=== PATIENT | male | born 2000 | race Caucasian/White ===

== ENCOUNTER 2019-09-27 13:17 | Inpatient (IN) | payer BC, OTHER ==
[~2019-09-27] VITALS: Ht 177.8 cm; Wt 54.2 kg
[2019-09-27] MEDS ORDERED: LIORESAL 1010 MG/TAB PO (13:27)
[2019-09-27] MEDS ORDERED: PERIDEX (CHLOR480 ML TOP (13:30)
[2019-09-27] MEDS ORDERED: PERIDEX (CHLOR480 ML MM (13:32)
[2019-09-27] MEDS ORDERED: SENNA-S 50 MG-81 TAB PO (13:34)
[2019-09-27] MEDS ORDERED: ILOTYCIN5 MG/GM OU (13:35)
[2019-09-27] MEDS ORDERED: NEURONTIN300 MG/CAP PO (13:36)
[2019-09-27] MEDS ORDERED: ZOFRAN 4MG T4 MG/TAB PO (13:37)
[2019-09-27] MEDS ORDERED: DAZIDOX10 MG PO (13:38)
[2019-09-27] MEDS ORDERED: GAS RELIEF 8080 MG PO (13:39)
[2019-09-27] MEDS ORDERED: MULTI VITAMINS1 TAB PO (13:39)
--- NOTE | 2019-09-27 14:00 | NUR ---
Received report from RICKI Montes De Oca at [facility]. Patient was being transported via personal vehicle and was given prn oxy prior to leaving. Awaiting his arrival.
--- NOTE | 2019-09-27 15:00 | NUR ---
Patient arrived to [facility] via wheelchair with his mother Melinda, and step father by his side. Patient was reporting severe abdominal pain and was moaning very loud. This nurse got a weight on him and then transferred him to his room. He was given a heating pad to apply to his abdomen and was placed in his bed. Patient then vomitted approximatly 200 ml into basin. Assessment was completed and patient had abdominal sounds to all quadrants, but were very slow per RICKI Barnett that double checked sounds with me. Dr. Galeano was called to check on patient due to elevated blood pressure and heart rate. See new orders per Dr. Galeano to change pain med from Q 6 Hrs to Q 4 Hrs prn; he also added a lidocain patch. See order for Chest and abdomen X-Rays and labs. Patient eventually became more comfortable and resting in bed.
[2019-09-27 15:20] VITALS: BP 164/88; PULSE 116; TEMP 97.4
[2019-09-27 16:20] LABS: BASO # 0.1 (0.0-0.2); BASO % 0.4 % (0.0-2.0); EOS % 0.2 % (0-4.0); GRAN % 87.2 % (42.2-75.2); LYMPH # 0.8 (1.2-3.4); LYMPH % 6.8 % (20.0-51.0); MEAN CELL VOLUME 97 fl (80.0-100.0); MEAN CORPUSCULAR HGB CONC 31 g/dl (33.0-37.0); MEAN PLATELET VOLUME 9.3 fl (7.4-10.4); MONO # 0.6 (0.1-0.6); MONO % 5.1 % (1.7-9.3); PLATELET COUNT 904 K/mm3 (130-400); RED BLOOD COUNT 3.04 M/mm3 (4.20-5.60); REDCELL DISTRIBUTION WIDTH-CV 16.4 % (11.5-14.5)
[2019-09-27 16:29] LABS: HEMATOCRIT 29.5 % (42.0-52.0); HEMOGLOBIN 9.1 g/dl (13.5-18.0); MEAN CORPUSCULAR HEMOGLOBIN 30 pg (27.0-31.0)
[2019-09-27 16:30] LABS: ALBUMIN 4.1 gm/dL (3.5-5.0); BILIRUBIN,TOTAL 0.6 mg/dL (0.0-1.0); CALCIUM 9.5 mg/dL (8.4-10.2); CREATININE, serum 0.65 (0.66-1.25); TOTAL PROTEIN 7.7 gm/dL (6.4-8.2)
[2019-09-27 19:30] VITALS: BP 119/67; PULSE 114; TEMP 99.2
--- NOTE | 2019-09-27 23:22 | NUR ---
REVIEWED IPR ROUTINE. PT REQUEST PAIN MEDICATION. PT REPORTS HE IS SUPPOSE TO NON WBAT TO LT ARM D/T FX BUT HE SAYS HE PUTS HIS WHOLE WEIGHT ON IT REGARDLESS. REVIEWED POSSIBLE ADVERSE EFFECT FROM THIS BUT NOT RECEPTIVE TO NEW INFORMATION. CALL LIGHT IN REACH. BED ALARM SET.
[2019-09-28 03:34] VITALS: BP 126/86; PULSE 107; TEMP 98.2
--- NOTE | 2019-09-28 05:55 | NUR ---
PT RESTING AT THIS TIME. NO RESP DISTRESS. PT MOVES AROUND IN BED WELL. REPOSITIONS SELF FOR COMFORT. USED URINAL THROUGH THE NIGHT. PAIN UNDER CONTROL AT THIS TIME. PT REPORTED EARLIER HE STARTED PASSING GAS AND ABLE TO BELCH.
--- NOTE | 2019-09-28 16:43 | NUR ---
Translator Interpreter met with patient, patient's brother Slava, patient's mother Melinda (ph#[phone]), and patient's step father En (ph#[phone]) to discuss discharge planning. Patient was living in [facility] and is transitioning back to [place] where Melinda and En live for the time being. En reports he is retiring from the in December and they plan to move back to [facility] at that time with patient. Patient's father, Bipin lives in [place]. Patient states he has lived in the hospital for the last 30 days. Patient does not have a primary care physician at this time but was interested in setting up primary care upon discharge. LICHA will follow up with list of [facility] providers. Patient's mother reports she has mental health services set up for discharge with a therapist in [place] but would like for patient to have someone to talk to while he is here. LICHA followed up with RICKI Navarrete who advised a psych consult has been ordered. Patient's step father states patient has BCBS but is interested in applying for Medicaid. LICHA left message for Himanshu, Financial Counselor. LICHA explained her role in discharge planning and provided contact information per family's request. SW to continue to follow.
[2019-09-28 18:10] VITALS: BP 117/79; PULSE 110; TEMP 98.4
--- NOTE | 2019-09-28 19:42 | NUR ---
Shift report from RICKI Olivier. Pt in bed between therapies, requests pain meds frequently, mom and step-dad and half-brother visited today, pt talkative, nervous, reviewed IPR plan of care. Cued to NWB to DRE. Began aggressive bowel med routine.
--- NOTE | 2019-09-28 20:11 | NUR ---
Bedside report to RICKI Cates. Then returned to administer and provide assist for fleets enema, had large formed stool with liquid, reported to Loan. Pt returned to bed, alarm on, call lt in reach, urinal in reach.
--- NOTE | 2019-09-28 21:05 | NUR ---
HS meds reviewed and given. Miralax in orange juice per patient request and popscicle given. States will take pain med when next due at 2230. States abdomin not upset at this time following xlg bm after fleets enema earlier.
--- NOTE | 2019-09-28 22:30 | NUR ---
Awakened per patient request for prn elizabeth and given. Drowsy and returns to resting with eyes closed.
[2019-09-29 03:38] VITALS: BP 130/81; PULSE 106; TEMP 98.2
--- NOTE | 2019-09-29 06:11 | NUR ---
Patient has been resting with eyes closed on right side since pain meds given earlier. Woke patient up for med and denied needs.
--- NOTE | 2019-09-29 07:57 | NUR ---
Sitting up in bed with eyes open. Alert and oriented x4. Says that he is feeling pretty good this morning. Bilat bruising and swelling noted to eyes. Chest tube sites and mid abd incision well healed. Back incisions well approximated with steri strips intact. Removed lidoderm patch from back. Patient denies needs at this time.
--- NOTE | 2019-09-29 12:24 | NUR ---
Rating pain in abd and back /10. Patient says that his constipation is causing his abd pain and he has the sharp back pain as well. Patient requests pain medication. Administered Roxicodone as prescribed. Offered patient dulcolax suppository and prune juice but patient declines and says the the suppositories do not work for him. Patient would like to see if they would order an enema for him as they have worked best. Explained that I will see if we can get that ordered and we would let him know. Patient says that if it is able to be ordered he will wait until after hsi last therapy session today to get it. Denies further needs at this time.
--- NOTE | 2019-09-29 12:35 | NUR ---
Message left for Dr. Moncada to contact this nurse to see if enema can be ordered.
--- NOTE | 2019-09-29 12:39 | NUR ---
Dr. Moncada provides order for enema PRN. Order placed. Patient updated.
--- NOTE | 2019-09-29 16:33 | NUR ---
Development Technical Lead met with patient, patient's mother Melinda and patient's step father En to schedule family meeting for (10/01/19) at 1300. SW contacted patient's father, Bipin (ph#[phone]) who will participate by phone. LICHA notified CESAR Bui Director of scheduled date and time.
[2019-09-29 16:58] VITALS: BP 103/72; PULSE 111; TEMP 98.5
--- NOTE | 2019-09-29 16:59 | NUR ---
Patient requested pain medication for pain in back and stomach. Brought in Roxicodone as prescribed and the patient requests to take in a moment when his stomach settles. Patient also wants the Fleets enema but family in room at this time so patient wants to wait for when they leave. Patient denies further needs at this time.
--- NOTE | 2019-09-29 17:45 | NUR ---
Administered Fleets enema at this time. Patient able to hold in for approximately 10 minutes. Assisted patient up to bedside commode. Patient requests privacy and will use call light when done.
--- NOTE | 2019-09-29 18:34 | NUR ---
Patient having whistling sound at trach site. Removed dressing, purulent discharge noted on 2x2s with some odor. Applied two new 2x2's to site and reinforced with Replicare. Patient tolerates well. Says that his stomach feels a little bit better since having some of a bowel movement. Still feels like he needs to have more. Denies needs at this time.
--- NOTE | 2019-09-29 20:30 | NUR ---
Bipin Yanez called to talk to patient "important things I need to discuss with him" and gave correct privacy code to nurse. Informed patient of above and at first patient requested not to talk with him, but did accept call. Call transferred to patients room. Patient denies needs at this time.
--- NOTE | 2019-09-29 22:00 | NUR ---
HS meds and roxycodone for pain reviewed and given. Takes miralax in 6 oz applejuice and also takes snack of grape juice. Bowel sounds are active and reports he's passing gas. Refuses SCD's. Bed alarm on for safety.
[2019-09-30 01:10] VITALS: BP 115/71; PULSE 103; TEMP 97.6
--- NOTE | 2019-09-30 01:20 | NUR ---
Patient called and reported he had blood on his pillow from scalp incision. Nurse in and noted left parietal scalp incision (area without kaiser) had small amount dk blood but no active bleeding noted at this time. <1mm area not quite approximated noted. Pillow and bed sheet with 6 cm in circumference area of bright red blood. Stacked 4x4 dressing secured with kerlix applied to left scalp. VSS. Hand breaker boss strong and equal. Patient alert and oriented x 4. Has left eye upward deviation so difficult to assess pupil response. Right eye reacts readily to light. Leg strength strong and equal. Notified Sima RODRIGUEZ of above and to inform her of any changes. Will monitor.
--- NOTE | 2019-09-30 02:28 | NUR ---
Patient awake and pain meds given for back pain. Gauze dressing CDI to left scalp.
[2019-09-30 04:59] VITALS: BP 108/71; PULSE 96; TEMP 98.8
[2019-09-30 06:52] LABS: BASO % 0.6 % (0.0-2.0); EOS # 0.2 (0.0-0.7); EOS % 3.6 % (0-4.0); GRAN # 3.2 (1.4-6.5); GRAN % 49.2 % (42.2-75.2); LYMPH # 2.2 (1.2-3.4); LYMPH % 33.6 % (20.0-51.0); MEAN CELL VOLUME 98 fl (80.0-100.0); MEAN CORPUSCULAR HGB CONC 31 g/dl (33.0-37.0); MEAN PLATELET VOLUME 9.1 fl (7.4-10.4); MONO # 0.8 (0.1-0.6); MONO % 12.8 % (1.7-9.3); PLATELET COUNT 851 K/mm3 (130-400); RED BLOOD COUNT 3.27 M/mm3 (4.20-5.60); REDCELL DISTRIBUTION WIDTH-CV 16.8 % (11.5-14.5)
[2019-09-30 07:04] LABS: CALCIUM 9.5 mg/dL (8.4-10.2); CREATININE, serum 0.68 (0.66-1.25); MAGNESIUM 1.8 mg/dL (1.6-2.3); POTASSIUM 3.8 mmol/L (3.4-5.0)
[2019-09-30 07:10] LABS: HEMATOCRIT 31.9 % (42.0-52.0); HEMOGLOBIN 9.8 g/dl (13.5-18.0); MEAN CORPUSCULAR HEMOGLOBIN 30 pg (27.0-31.0)
--- NOTE | 2019-09-30 12:42 | NUR ---
Pt states the jello from this morning tasted good but still caused stomach pain. Pt timothy apple juice with miralax this morning, has Ensure Clear apple at bedside.
[2019-09-30 16:58] VITALS: BP 118/77; PULSE 101; TEMP 98.8
--- NOTE | 2019-09-30 17:23 | NUR ---
Rib Stiffener And Heel Dipper met with patient, patient's mother, and patient's step father to review team conference notes. SW advised that a tentative discharge date was set for 10/09/19. SW will continue to follow. Family meeting scheduled for (10/01/19).
--- NOTE | 2019-09-30 21:07 | NUR ---
Pt was agreeable to receive call from his Dad Bipin. Bipin and his Casi talked with this nurse on the phone this evening at length about some concerns about Jose M. See med changes for pain/stomach ache. Stool for H. pylori lab sent. No shadowing to dressing to left parietal dressing of gauze. Restoril inj given, fleets enema given with semi-liquid/soft green-brown results. This nurse call pt's mom, Melinda, this evening with questions about pt's history of counseling- did not convey that Bipin had called, nor the nature of his concerns and info reported. Will make nursing notes about these phone calls tomorrow and send to psych. Report to RICKI Olivier.
--- NOTE | 2019-09-30 21:30 | NUR ---
PT RESTING IN BED. A&OX4. TALKATIVE. IN GOOD HUMOR. LT EYE WITH HIGH GAZE. PRIMARY VISION WITH RT EYE. LT LOWER EYE LID LESS RED. PT VERY MOBILE CONSIDERING MULTIPLE FRACTURES. REQ PAIN MED AND GRAPE POPSICKLE. ATE X2 JELLOS EARLIER. TOOK MIRALAX AND OTHER BOWEL MEDS. TYLER WELL. HYPERACTIVE BS X4. HAD BM AT END OF LAST SHIFT POST FLEETS EMEMA. PT REPORTS NOT ENOUGH RELIEF. CALL LIGHT IN REACH. BED ALARM SET.
[2019-10-01 06:00] VITALS: BP 112/65; PULSE 84; TEMP 97.9
--- NOTE | 2019-10-01 07:42 | NUR ---
Report from RICKI Olivier. Pt was asleep upon entering room, refused breakfast, given ensure clear apple with miralax and left remaining container. Set up peridex oral rinse on tray and provided pt shirt for donning prior to PT. Removed head dressing, scant drainage present.
--- NOTE | 2019-10-01 12:16 | NUR ---
Found pt had an empty Ensure Vanilla, asked pt why did he drink it, he seemed to have problems with these before, pt states, "I found out how much I weighed, and figured it didn't matter if it hurt my stomach." Refused [facility] soft foods, provided grape popsicle, two jellos, and fresh Ensure Clear Apple.
--- NOTE | 2019-10-01 12:42 | NUR ---
Initial visit; Patient thanked Ocean Freight Forwarder for looking in on him and offering encouragement, listening and keeping him in her prayers. Patient is Zaina and has had several visits from his Editorial Clerk.
--- NOTE | 2019-10-01 13:56 | NUR ---
Admission QIM scores were reviewed by the team. Code of 6 chosen for rolling left to right was determined by team discussion to be the most usual performance before interventions for this patient during the assessment period. Code of 6 chosen for sit to lying was determined by team discussion to be the most usual performance before interventions for this patient during the assessment period. Code of 6 chosen for lying to sitting on side of bed was determined by team discussion to be the most usual performance for this patient during the assessment period. Code of 6 chosen for sit to stand was determined by team discussion to be the most usual performance for this patient during the assessment period. Code of 4 chosen for chair/bed-to chair transfers was determined by team discussion to be the most usual performance for this patient during the assessment period.--Ramya Harris, PD
--- NOTE | 2019-10-01 15:22 | NUR ---
Flour Broker participated in patient's family meeting which included patient's step-father, IPR Director RICKI Bui and PT/OT/ST. Patient's mother along with patient's father and step mother participated by phone. PT/OT/ST reviewed patient progress along with tentative discharge date of 10/09/19. Patient has had GI consult and will have EGD done tomorrow. Patient's father and step mother inquired about patient future in regards to driving and employment. Patient denies any further questions or concerns at this time. SW to continue to follow.
[2019-10-01 16:16] VITALS: BP 118/66; PULSE 105; TEMP 98.8
--- NOTE | 2019-10-01 18:19 | NUR ---
Pt called c/o dizziness and stomach pain. see vitals
[2019-10-01 18:36] VITALS: BP 125/80; PULSE 112; TEMP 98
--- NOTE | 2019-10-01 20:00 | NUR ---
PT RESTING IN BED. NO DISTRESS. DENIES NEEDS.
--- NOTE | 2019-10-01 20:15 | NUR ---
Report to Charline RN at pt's room. He had acute pain/panic prior to shift change, see vitals, PRNs given for pain, offered GI cocktail and pt refused, offered to toilet, refused, agreeable to amb lewis with gait belt, pt walked to medical nurses' station and back around to IPR room, reports is helped some. Resps with ease during report, asleep, alarm on, call lt in reach, heating pad to abd, yellow gown and gripper socks in place.
--- NOTE | 2019-10-01 20:23 | NUR ---
Charline RN agreeable to giving pt's relistor
--- NOTE | 2019-10-02 | NUR ---
PT THOUGHT HE WAS PASSING GA. HAD INCONTINENT STOOL IN CLOTHING. ASSISTED TO BR TO CLEAN UP. PT HAD MED THICK PUDDING LIKE STOOL BROWNISH WITH VOID.
--- NOTE | 2019-10-02 | NUR ---
PT SLEEPINGH. NO RESP DISTRESS. NPO
[2019-10-02 06:02] VITALS: BP 112/71; PULSE 90; TEMP 98.2
[2019-10-02 08:11] LABS: HEMOGLOBIN 10.5 g/dl (13.5-18.0); MEAN CELL VOLUME 99 fl (80.0-100.0); MEAN CORPUSCULAR HEMOGLOBIN 30 pg (27.0-31.0); MEAN CORPUSCULAR HGB CONC 30 g/dl (33.0-37.0); MEAN PLATELET VOLUME 9.2 fl (7.4-10.4); PLATELET COUNT 802 K/mm3 (130-400); REDCELL DISTRIBUTION WIDTH-CV 17.2 % (11.5-14.5)
[2019-10-02 08:13] LABS: HEMATOCRIT 34.8 % (42.0-52.0)
[2019-10-02 08:23] LABS: ALBUMIN 4.1 gm/dL (3.5-5.0); BILIRUBIN,TOTAL 0.8 mg/dL (0.0-1.0); CALCIUM 9.5 mg/dL (8.4-10.2); CREATININE, serum 0.71 (0.66-1.25); MAGNESIUM 1.9 mg/dL (1.6-2.3); POTASSIUM 4.2 mmol/L (3.4-5.0); TOTAL PROTEIN 7.9 gm/dL (6.4-8.2)
--- NOTE | 2019-10-02 08:46 | NUR ---
Bedside report from RICKI Olivier. Pt was asleep in bed, NPO prior to procedure, took pertinant/pain meds with sips. INT in place, [facility] with KISHOR.
[2019-10-02 08:48] LABS: BAND 1 % (0-10); EOSINOPHIL 2 % (0-4); LYMPHOCYTE 28 % (20.0-51.0); NEUTROPHILS 65 % (42.0-75.2); PLATELET ESTIMATE INCREASED (NORMAL)
--- NOTE | 2019-10-02 10:51 | NUR ---
Follow-up visit; Patient thanked House Rn for looking in on him again this morning and keeping him in her prayers.
[2019-10-02 12:45] VITALS: BP 112/71; PULSE 90; TEMP 98.2
--- NOTE | 2019-10-02 13:17 | NUR ---
Pt was transported to procedure via cart with Les Faith from [facility] aware of pt's meds received. LR to 22g in RFA, anne for pain prior.
--- NOTE | 2019-10-02 13:37 | NUR ---
Pt returned from procedure to IPR room 340.
[2019-10-02 13:47] VITALS: BP 110/75; PULSE 96; TEMP 97.4
--- NOTE | 2019-10-02 15:44 | NUR ---
Head Housekeeper met with patient and patient's mother to check in before the weekend. Patient in pain and hesitant to answer questions. SW provided patient's mother with list of [place] primary care providers and encouraged her to explore options for primary care in [place] online. SW to continue to follow.
--- NOTE | 2019-10-02 15:45 | NUR ---
Pt returned from PT to bed, writhing in pain, shaking himself, moaning, reports pain to rt abd pressing on his ribs, enc repositioning, prn pain meds given, k-pad over stomach, mom and step brother visiting, QUALITY ASSURANCE PROJECT MANAGER took pt for a walk. Visited with mom about pt's behavior/pain changes yesterday at shift change similar to now. Pt continued to have pain upon return to bed. Pt called for Estelle when it became available, given by another nurse, and upon this nurse's return to pt's room after he reported emesis, found pt resting quietly in bed with eyes closed. Emesis was yellow/bianchi liquid with some alonso/brown mucousy bits. Pt reports that there was blood in the emesis and that he could taste it.
[2019-10-02 17:49] VITALS: BP 102/67; PULSE 104; TEMP 99
--- NOTE | 2019-10-02 20:00 | NUR ---
PATIENT RESTING IN BED DURING SHIFT CHANGE REPORT FROM DAY SHIFT NURSE. BED ALARM ENGAGED. NO NEEDS REPORTED BY PATIENT AT TIME OF REPORT.
--- NOTE | 2019-10-02 20:24 | NUR ---
Pt was asleep in bed when following up prior to shift change. During rounds, pt was on his cell phone, legs crossed, tapping foot to music, NAD. Bedside report to RICKI Joseph. Turned bed alarm on, bandaid over midline abd incision where pt c/o "bump"- possibly SQ suture. Continuing LR on straight tubing for the hydration as pt has min intake d/t NPO prior to procedure. Pt's father Bipin called, questions answered.
--- NOTE | 2019-10-03 00:32 | NUR ---
PATIENT DOES NOT AWAKEN FOR SCHEDULED MIDNIGHT GABAPENTIN AT THIS TIME. BED ALARM ENGAGED.
--- NOTE | 2019-10-03 03:31 | NUR ---
RESTING WITH EYES CLOSED IN BED, DOES NOT AWAKEN WHEN ROOM ENTERED OR NAME CALLED, BREATHING EVEN/NONLABORED. BED ALARM ENGAGED
[2019-10-03 05:03] VITALS: BP 106/58; PULSE 86; TEMP 97.8
--- NOTE | 2019-10-03 07:26 | NUR ---
PATIENT RESTING IN BED DURING SHIFT CHANGE REPORT GIVEN TO DAY SHIFT NURSE. BED ALARM ENGAGED
--- NOTE | 2019-10-03 11:33 | NUR ---
Patient currently resting in his bed at this time. He was made independent in his room this morning per PT, Vi. Patient is very steady on his feet. Refused any solid food this shift. Dietary saw patient and try to talk him into drinking an enlive drink, but patient refused saying that he can't drink dairy, because it causes him to have projectile vomiting. Patient reported that all he can drink is the ensure and water without having the abdominal pain, nausea and then vomiting. Patient given prn oxy for pain this morning to his back and this was helpful. Will continue to monitor.
--- NOTE | 2019-10-03 15:00 | NUR ---
Spoke with patient's mother and step father discussing loss of weight and concerns about thier son's abdominal pain. Dr. Moncada was called and he visited with patient and his family. The option of feeding tube was discussed as a near future option if he does not start to eat and gain some weight. Patient agreed to eat more and family will be bringing in food to help him succeed. It was determined that he will start a goal of 1000 calories per day at first and once that goal is reached to increase to 1500 calories per day until his stomach begins to adapt to that increase of food. Patient has been on a clear liquid diet, but Dr. Moncada was okay with him eating mechanical soft foods. Patient's family brought him in some mashed potatoes and gravy, and he ate all the potatoes along with some fudge bars that his mom had brought along. Patient in pleasent mood this evening. Family was very thankful for Dr. Moncada to visit with them today.
[2019-10-03 18:10] VITALS: BP 120/77; PULSE 102; TEMP 97.9
--- NOTE | 2019-10-03 20:00 | NUR ---
PATIENT RESTING IN BED DURING SHIFT CHANGE REPORT FROM DAY SHIFT NURSE. PATIENT UP INDEPENDENTLY IN ROOM WITH NO PROBLEMS OR COMPLAINTS. SEE eMAR FOR PRN MEDS GIVEN.
--- NOTE | 2019-10-04 02:39 | NUR ---
PATIENT RESTING IN BED WITH EYES CLOSED, DOES NOT AWAKEN WHEN ROOM ENTERED. PATIENT UP INDEPENDENTLY IN ROOM WITH NO PROBLEMS SO FAR THIS SHIFT.
[2019-10-04 05:19] VITALS: BP 96/55; PULSE 82; TEMP 97.7
--- NOTE | 2019-10-04 07:37 | NUR ---
PATIENT RESTING IN BED DURING SHIFT CHANGE REPORT GIVEN TO DAY SHIFT NURSE. UP INDEPENDENTLY IN ROOM WITH NO PROBLEMS.
--- NOTE | 2019-10-04 11:40 | NUR ---
Patient independent in his room. He is currently walking around in his room staying busy with calling friends, watching TV and his parents brought his guitar to fiddle around with as well. Patient given prn pain meds that have been effective. He ate all his oatmeal this morning and all his applesauce. He was given yogurt at 10:30 AM and has been nibbling on that. Patient received a call from his father Bipin this morning and patient reported that his dad would be stopping by to see him tomorrow. Patient currently walking the [facility] hallway for more exercise. Denies questions at this time.
--- NOTE | 2019-10-04 15:20 | NUR ---
Patient's family stopped by today. Discussed when he was to get his kaiser out of his scalp. Step father reported that it was to be three weeks after the sugery and that date would be 10/09/19. [place] are intact and no signs of infection was observed. Patient ate pudding and tomato soup for lunch today. He has been very positive this shift and family has brought him some food and have been very encouraging for him. Family denies any questions at this time. Will continue to monitor.
--- NOTE | 2019-10-04 15:55 | NUR ---
Jose M left with family to sit outside by the fountain on 1st floor to get fresh air.
[2019-10-04 16:43] VITALS: BP 126/86; PULSE 107; TEMP 98.4
--- NOTE | 2019-10-04 20:00 | NUR ---
PATIENT UP INDEPENDENTLY IN ROOM AND HALLS WITH NO PROBLEMS DURING SHIFT CHANGE REPORT FROM DAY SHIFT NURSE. NO OTHER NEEDS REPORTED.
--- NOTE | 2019-10-05 01:26 | NUR ---
PATIENT RESTING WITH EYES CLOSED, DOES NOT AWAKEN WHEN ROOM ENTERED. UP INDEPENDENTLY IN ROOM.
[2019-10-05 04:37] VITALS: BP 106/66; PULSE 88; TEMP 97.7
--- NOTE | 2019-10-05 08:08 | NUR ---
PATIENT RESTING IN BED DURING SHIFT CHANGE REPORT GIVEN TO DAY SHIFT NURSE. PATIENT UP INDEPENDENTLY IN ROOM AND DUENAS WITH NO PROBLEMS.
--- NOTE | 2019-10-05 12:15 | NUR ---
Pt's dad arrived for visit this morning, followed pt to therapies. Pt sitting up in bed for lunch, mattress cover in place, declines pain med at this time.
--- NOTE | 2019-10-05 14:53 | NUR ---
Plan to discharge pt home tomorrow, kaiser removed by this nurse, incisions with edges well approximated, only old dried bloody drainage present in some placed, no swelling or redness. Pt timothy well.
--- NOTE | 2019-10-05 16:25 | NUR ---
LICHA met with the patient, his father (Bipin), and step-mother to introduce onself and to follow up after the weekend. The patient states that he is doing well. His father and step-mother report that they have been informed that the patient is to be discharged tomorrow, 10/06. LICHA confirmed this from the patient's RN, Rosalba, due to insurance. The patient and his parents are in agreeance to the discharge. LICHA staffed with RN, Rosalba. The patient's family chose [facility] for the outpatient PT/OT. Rosalba states that she has contacted [facility] for the appointments. The patient and his family had no other questions or concerns for LICHA at this time. SW to continue to follow.
[2019-10-05 16:36] VITALS: BP 121/76; PULSE 85; TEMP 98
--- NOTE | 2019-10-05 18:23 | NUR ---
Dr. Moncada cleared pt medically for discharge home tomorrow. Confirmed pharm of choice and plan to dc in afternoon with mom Melinda. She reported most of pt's appts to nurse, and communicated in return appts and messages left for other f/u's. Pt took anne once at start of removing kaiser, states his stomach was full after eating soup and it was pressing on his kidneys causing him pain. Pt timothy indep in rm w/o device.
--- NOTE | 2019-10-05 20:50 | NUR ---
HS meds along with new med remeron reviewed and given. Requested elizabeth at for pain and given. Is mod I in room and hallway. Has fruit cup for snack.
--- NOTE | 2019-10-05 22:16 | NUR ---
Rests with eyes closed. Respirations with ease.
--- NOTE | 2019-10-06 02:35 | NUR ---
Patient rests quietly in bed.
--- NOTE | 2019-10-06 06:17 | NUR ---
Patient has been resting quietly in bed.
[2019-10-06 07:03] VITALS: BP 114/74; PULSE 98; TEMP 97.9
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
[2019-10-06] MEDS ORDERED: LIORESAL 1010 MG/TAB PO (11:39)
[2019-10-06] MEDS ORDERED: ASPERCREME1 EACH TP (11:39)
[2019-10-06] MEDS ORDERED: TYLENOL 500MG500 MG PO (11:40)
[2019-10-06] MEDS ORDERED: NEURONTIN600 MG/TAB PO (11:40)
[2019-10-06] MEDS ORDERED: MIRTAZAPINE7.5 MG PO (11:41)
[2019-10-06] MEDS ORDERED: COLACE 100100 MG/CAP PO (11:41)
[2019-10-06] MEDS ORDERED: ZOFRAN ODT4 MG PO (11:42)
[2019-10-06] MEDS ORDERED: PROTONIX 40MG T40 MG PO (11:42)
[2019-10-06] MEDS ORDERED: MIRALAX PA17 GM/Dose PO (11:42)
[2019-10-06] MEDS ORDERED: ROXICODONE 55 MG/TAB PO (11:43)
--- NOTE | 2019-10-06 12:06 | NUR ---
Pt ate eggs, mech soft sausage, and oatmeal for breakfast
--- NOTE | 2019-10-06 14:45 | NUR ---
Changed trach site dressing and provided education to parents and step-parents. Removed INT from RFA, applied bandaid.
--- NOTE | 2019-10-06 14:48 | NUR ---
The patient and his family were interested in completing a DPOA-HC and for it to be notarized. SW provided form and contacted the [place]. vinay
--- NOTE | 2019-10-06 15:55 | NUR ---
Printed Pt health summary, discharge summary, and home med list and reviewed with pt, parents and step-partents, En Lawrence Travis and Casi. Stressed importance of follow up appointments, and that neurosurgery and GI appts still need made, Melinda verbalizes understanding. Reviewed med list and indicated on the paperwork which meds were electronically sent (Sent [facility]) and which needed to be gotten as OTC, and handed printed prescription for Estelle and explained there are no refills, he will need PCP to re-order if needed. Belongings gathered by pt, family, and staff including meds, clothes, cell phone, foam mattress. Pt ambulated with this nurse to vehicle for ride home with mom and step-dad. Pt and familys' questions answered. They have nursing station phone number if questions.
== END 2019-10-06 15:34 | disposition home or self-care (01) | DRG 949 ==
PROVIDERS: Student in an Organized Health Care Education/Training Program; ADMIT Internal Medicine
DX: S06.5X9D Traumatic subdural hemorrhage with loss of consciousness of unspecified duration, subsequent encounter (principal); E43 Unspecified severe protein-calorie malnutrition; V89.2XXD Person injured in unspecified motor-vehicle accident, traffic, subsequent encounter; S02.609D Fracture of mandible, unspecified, subsequent encounter for fracture with routine healing; S42.102D Fracture of unspecified part of scapula, left shoulder, subsequent encounter for fracture with routine healing; J98.4 Other disorders of lung; S22.061D Stable burst fracture of T7-T8 vertebra, subsequent encounter for fracture with routine healing; S22.43XD Multiple fractures of ribs, bilateral, subsequent encounter for fracture with routine healing; K59.8 Other specified functional intestinal disorders; S01.81XD Laceration without foreign body of other part of head, subsequent encounter; G47.00 Insomnia, unspecified; D47.3 Essential (hemorrhagic) thrombocythemia; K59.00 Constipation, unspecified; D64.9 Anemia, unspecified; Z79.891 Long term (current) use of opiate analgesic; Z87.891 Personal history of nicotine dependence
CPT/HCPCS: 99223-AI; 99231-AI; 99233-AI; 99239; J2212; J2704; J7120